=== PATIENT | female | born 1965 | race Caucasian/White ===

== ENCOUNTER 2020-01-08 13:29 | Outpatient (REF) | payer BC, MEDICARE, MEDICAID, SELFPAY ==
--- NOTE | 2020-01-08 | MR_ITS ---
MRI OF THE BRAIN WITH AND WITHOUT IV CONTRAST INDICATION: Multiple sclerosis. COMPARISON: None available. TECHNIQUE: Multiplanar multisequence MR imaging of the brain was obtained without and following the administration of 7.5 mL of Gadavist without complication. FINDINGS: There is no pathologic intracranial enhancement. There are T2 signal changes throughout the supratentorial white matter and central elizabeth which are nonspecific, could be seen in the setting of chronic microangiopathy, other vasculopathies, or alternative etiologies. The distribution is not suggestive of the sequela of demyelinating disease. There is no restricted diffusion within the central elizabeth to suggest central pontine myelinolysis. There is no hydrocephalus, extra-axial surface collection, or herniation. The major flow voids at the skull base are preserved. There is no acute infarct on diffusion-weighted imaging. There is no intracranial hemorrhage on the gradient recalled echo acquisition. The midline structures are normal. The cerebellar tonsils are normally positioned. The cerebellum and brainstem are normal. The craniocervical junction is normal. Osseous marrow signal intensity is homogenous. The visualized soft tissues are unremarkable. There is a retention cyst within the left maxillary sinus. The remaining paranasal sinuses and the mastoid air cells are clear. MR/MR head/brain wo/w con IMPRESSION: There are T2 signal changes throughout the supratentorial white matter and central elizabeth which are nonspecific, could be seen in the setting of chronic microangiopathy, other vasculopathies, or alternative etiologies. The distribution is not suggestive of the sequela of demyelinating disease. There is no restricted diffusion within the central elizabeth to suggest central pontine myelinolysis. No pathologic enhancement.
== END 2020-01-08 13:30 | disposition home or self-care (01) ==
LOC: HO.MRI 13:29
PROVIDERS: Visit Provider Psychiatry & Neurology Neurology
DX: G37.9 Demyelinating disease of central nervous system, unspecified (principal)
CPT/HCPCS: 70553; A9585

== ENCOUNTER 2020-09-29 14:15 | Outpatient (REF) | payer MEDICARE, MEDICAID, SELFPAY ==
--- NOTE | ~2020-09-29 | XR_ITS ---
EXAMINATION: XR HIP, LEFT CLINICAL INFORMATION: Acute left-sided pain. COMPARISON: None TECHNIQUE: Two views of the left hip. FINDINGS: Bones and soft tissues are normal. No fracture. Alignment is anatomic. Hip joint space is maintained. XR/XR hip LT min 2V IMPRESSION: Normal left hip.
== END 2020-09-29 14:16 | disposition home or self-care (01) ==
LOC: HO.XRAY 14:15
PROVIDERS: Visit Provider Psychiatry & Neurology Neurology
DX: M25.552 Pain in left hip (principal)
CPT/HCPCS: 73502

== ENCOUNTER 2021-04-13 12:01 | Outpatient (REF) | payer BC, MEDICARE, MEDICAID, SELFPAY ==
[2021-04-13 12:40] LABS: MANUAL DIFF FLAG NO
[2021-04-13 13:00] LABS: Basophils Percent Auto 0.6 % (0-2); Eosinophils Absolute Auto 0.2 X10*3/uL (0.0-0.4); Eosinophils Percent Auto 2.5 % (0-4); Hemoglobin 12.6 g/dl (12.0-16.0); Imm Gran Abs Auto 0.02 X10*3/uL (0.00-0.03); Imm Gran Pct Auto 0.3 % (0.0-0.4); Lymphocytes Absolute Auto 2.2 X10*3/uL (1.2-4.9); Lymphocytes Percent Auto 30.5 % (20-40); Mean Corpuscular HGB Conc 32.3 g/dl (31.0-35.0); Mean Corpuscular Hemoglobin 28.1 pg (27.0-33.0); Mean Corpuscular Volume 86.9 fL (80.0-98.0); Mean Platelet Volume 9.1 fL (9.4-12.3); Monocytes Absolute Auto 0.6 X10*3/uL (0.1-1.2); Monocytes Percent Auto 8.6 % (2-11); Neutrophils Absolute Auto 4.1 x10*3/uL (2.0-8.3); Neutrophils Percent Auto 57.5 % (45-73); Platelet Count 364 X10*3/uL (160-400); Red Blood Count 4.49 X10*6/uL (4.20-5.50); Red Cell Distribution Width 13.8 % (11.0-16.0); White Blood Count 7.1 X10*3/uL (4.8-10.8)
[2021-04-13 13:38] LABS: Erythrocyte Sedimentation Rate 17 MM/HR (0-20)
[2021-04-13 14:12] LABS: Anion Gap 9 (12-20); Carbon Dioxide 25 mmol/L (22-29); Chloride 111 mmol/L (96-108); Estimated Glomerular Filt Rate 56; Glucose Random 102 mg/dL (60-115); Iron 32 mcg/dL (30-160); Percent Iron Saturation 8 % (15-50); Potassium 5.2 mmol/L (3.3-5.1); Sodium 140 mmol/L (135-145); Total Iron Binding Capacity 384 mcg/dL (228-428); Unsaturated Iron Binding 352 ug/dL
[2021-04-13 14:16] LABS: Thyroid Stimulating Hormone 0.71 uIU/mL (0.32-4.0)
[2021-04-13 15:10] LABS: Blood Urea Nitrogen 12 mg/dL (9-16); Calcium 9.4 mg/dL (8.4-10.2)
== END 2021-04-13 12:02 | disposition home or self-care (01) ==
LOC: HO.LAB 12:01
PROVIDERS: Visit Provider Psychiatry & Neurology Neurology
DX: D64.9 Anemia, unspecified (principal); M79.7 Fibromyalgia
CPT/HCPCS: 36415; 80048; 83540; 84443; 85025; 85652

== ENCOUNTER 2024-11-14 11:46 | Outpatient (AMB) | payer OTHER, MEDICARE, SELFPAY ==
--- OUTSIDE RECORDS SUMMARY | 2024-11-14 10:15 | XMS_ITS | Encounter Summary ---
Author Organization [facility] Address [id number] [place] [id number] Care Team Providers Care Assistant Customer Service Manager Name Role Phone Eddie Odonnell MD Primary Care Provider [phone] Reason for Referral * Consultation (Routine) - Pending Review Specialty Diagnoses / Procedures Referred By Kelli redding Referred To Contact Urogynecology Diagnoses Multiple sclerosis (CMS/HCC V24, CMS/HCC V28) Mixed stress and urge urinary incontinence Eddie Odonnell MD [address] [address] Phone: tel: fax: Referral ID Status Reason Start Date Expiration Date Visits Requested Visits Authorized [id number] Pending Review Specialty Services Required 11/14/2024 11/14/2025 1 1 Reason for Visit * Reason Comments UTI Encounter Details Date Type Department Care Team (Late st Contact Info) Description 11/14/2024 10:15 AM EDT Office Visit Internal Medicine - [place] [address] [phone] Eddie Odonnell MD 175 [facility] [address] [place] [address] Mixed stress and urge urinary incontinence (Primary Dx); Multiple sclerosis (CMS/HCC V24, CMS/HCC V28) Social History Tobacco Use Types Packs/Day Years Used Date Smoking Tobacco: Every Day Cigarettes Passive Smoke Exposure: Current Smokeless Tobacco: Never Alcohol Use Standard Drinks/Week Comments No 0 (1 standard drink = 0.6 oz pur e alcohol) Housing Instability Answer Date Recorde d Are you worried that in the next 2 months you may not have stable housing? Unable to respond 06/09/2024 Food Access & Nutrition Answer Date Rec orded Do you have access to a vari ety of food including fruits and vegetables? Yes 06/09/2024 Access to Healthcare Answer Date Record ed Within the last 3 months, ho w many times did you visit the emergency department for your medical care? 0 06/09/2024 Health Literacy Answer Date Recorded How often do you need to hav e someone help you when you read instructions, pamphlets, or other written material from your doctor or pharmacy? Rarely 06/09/2024 Caregiver: How often do you need to have someone help you when you read instructions, pamphlets, or other written material from your doctor or pharmacy? Not on file 06/09/2024 Financial Risk Answer Date Recorded How hard is it for you to pa y for the very basics like food, housing, medical care, and air conditioning / heating? Somewhat hard 06/09/2024 Transportation Answer Date Recorded Has the lack of transportati on kept you from meetings, work, or from getting things needed for daily living? Yes 06/09/2024 Has the lack of transportati on kept you from medical appointments or from getting medications? Unable to respond 06/09/2024 Social Isolation Answer Date Recorded How often do you feel lonely or isolated from those around you? Sometimes 06/09/2024 Food Risk Answer Date Recorded Within the past 12 months we worried whether our food would run out before we got money to buy more. Sometimes true 025 Within the past 12 months th e food we bought just didn't last and we didn't have money to get more. Sometimes true 06/09/2024 Dependent Care Answer Date Recorded Do you need help finding or paying for care for your loved ones. For example, childcare center administrator or elderly care for an older adult? No 06/09/2024 Education Answer Date Recorded Do you think completing more education or training, like finishing a GED, going to college, or learning a trade, would be helpful for you? No 06/09/2024 Employment and Income Answer Date Recor ded During the last four weeks, have you been actively looking for work? No 06/09/2024 Living Situation Answer Date Recorded What is your living situation? 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 Not on f ile Not on file Not on file documented as of this encounter Last Filed Vital Signs Vital Sign Reading Time Taken Comments Blood Pressure 120/86 11/14/2024 10:17 AM EDT Pulse 86 11/14/2024 10:17 AM EDT Temperature 35.6 C (96 F) 11/14/2024 10:17 AM EDT Respiratory Rate - - Oxygen Saturation 98% 11/14/2024 10:17 AM EDT Inhaled Oxygen Concentration - - Weight 94.5 kg (208 lb 6.4 oz) 11/14/2024 10:17 AM EDT Height 157.5 cm (5' 2 ) 11/14/2024 10:17 AM EDT Body Mass Index 38.12 11/14/2024 10:17 AM EDT documented in this encounter Progress Notes * Linette Odonnell MA - 11/14/2024 10:15 AM EDTAddended by: LINETTE ODONNELL on: 11/14/2024 12:42 PM Modules accepted: Orders * Eddie Odonnell MD - 11/14/2024 10:15 AM EDT COMPLAINT is ongoing symptoms of frequent urination IDENTIFIER: Linnette Dean is a 59 y.o. old female. HPI: Frequent urination and urge incontinence. Urine dip shows only trace WBC, no nitrite, no RBC ,no protein was treated for E. coli UTI about 6 weeks ago. 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 Class 1 obesity 12/12/2023 Current smoker 12/12/2023 Prediabetes 12/12/2023 Complete fecal incontinence 12/12/2023 Migraine 12/12/2023 Hyperlipidemia 12/11/2023 Diverticulitis 12/11/2023 Depression 12/11/2023 Fibromyalgia 12/11/2023 Gastroesophageal reflux disease 09/21/2023 Ovarian cyst 04/20/2020 History of bowel resection 02/24/2020 Migraine without status migrainosus, not intractable 08/14/2019 Multiple sclerosis ([facility] V24, [facility] V28) 10/30/2018 PTSD (post-traumatic stress disorder) 10/30/2018 Chest pain 10/30/2018 Incontinence of feces 07/09/2015 Mixed stress and urge urinary incontinence 07/09/2015 Cystocele, midline 07/09/2015 PRIMITIVO (stress urinary incontinence, female) 07/09/2015 Past Surgical History: Procedure Laterality Date ANKLE COMPLETE LEFT 2023 BOWEL RESECTION 2012 PROCEDURE: HISTORICAL BOWEL RESECTION; COMMENT: diverticulitis complications COLONOSCOPY PROCEDURE: HISTORICAL COLONOSCOPY LAPAROSCOPY DIAGNOSTIC / BIOPSY / ASPIRATION / LYSIS 2012 PROCEDURE: PELVIS LAPAROSCOPY, DIAGNOSTIC; COMMENT: BSO NECK SURGERY 2011 PROCEDURE: HISTORICAL NECK SURGERY; COMMENT: x 3 OOPHORECTOMY OTHER SURGICAL HISTORY 1999 PROCEDURE: NJ DILATION & CURETTAGE DX&/THER NONOBSTETRIC OTHER SURGICAL HISTORY PROCEDURE: [place] CRNEC TREPHINE BONE FLAP 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 SOCIAL HISTORY: Social History Tobacco Use Smoking status: Every Day Current packs/day: 0.50 Types: Cigarettes Passive exposure: Current Smokeless tobacco: Never Substance Use Topics Alcohol use: No FAMILY HISTORY: Family History Problem Relation Name Age of Onset Other cancer Mother Brain Hypertension Father Glaucoma Father Heart attack Father Diabetes Father Dementia Father Depression Sister Hypertension Sister Diabetes Sister Glaucoma Sister Thyroid disease Sister Drug abuse Brother Hypertension Brother Breast cancer Maternal Grandfather Breast cancer Mother's Sister Breast cancer Other multiple mat.aunts MEDICATIONS DISCONTINUED/REORDERED: There are no discontinued medications. ACTIVE MEDICATIONS: Outpatient Medications Marked as Taking for the 11/14/24 encounter (Office Visit) with Eddie Odonnell MD Medication Sig Dispense Refill acetaminophen (TYLENOL) 325 mg tablet Take 2 tablets (650 mg total) by mouth every 6 (six) hours ifneeded for mild pain. for pain 80 tablet 0 acetaminophen (TYLENOL) 325 mg tablet Take 2 tablets (650 mg total) by mouth every 6 (six) hours ifneeded for moderate pain. for pain 80 tablet 0 albuterol HFA (PROAIR HFA ; PROVENTIL HFA ; VENTOLIN HFA) 90 mcg/actuation inhaler Inhale 2 puffs by mouth every 6 (six) hours if needed for wheezing or shortness of breath. 3 each 3 bisacodyL (DULCOLAX) 5 mg EC tablet Take 2 tablets by mouth right before beginning bowel prep. See instructions provided by the office 2 tablet 0 budesonide-formoteroL (Symbicort) 160-4.5 mcg/actuation inhaler Inhale 2 puffs by mouth 2 (two) times a day. Rinse mouth with water after use to reduce aftertaste and incidence of candidiasis. Do notswallow. 1 each 11 budesonide-formoteroL (SYMBICORT) 160-4.5 mcg/actuation inhaler Inhale 2 puffs by mouth 2 (two) times a day. Rinse mouth with water after use to reduce aftertaste and incidence of candidiasis. Do notswallow. 3 each 3 buPROPion XL (WELLBUTRIN XL) 150 mg 24 hr tablet TAKE ONE TABLET BY MOUTH EVERY DAY IN THE MORNING 90 tablet 1 buPROPion XL (WELLBUTRIN XL) 300 mg 24 hr tablet Take 1 tablet (300 mg total) by mouth 1 (one) timeeach day in the morning. maqnxhyhjj-oaayvmfqjpopz-uhfljjdn (FIORICET, ESGIC) 50-325-40 mg per tablet take one tablet by mouth every 6 hours as needed for 30 days chlorhexidine/glycerin/he-cell (LUBRICANTS TOP) Apply 1 Act topically. cloNIDine (CATAPRES) 0.1 mg tablet Take 1 tablet (0.1 mg total) by mouth 2 (two) times a day. diclofenac (VOLTAREN) 1 % topical gel Apply 4 g topically. DULoxetine (CYMBALTA) [address] capsule Take 1 capsule (60 mg total) by mouth. escitalopram (LEXAPRO) 20 mg tablet Take 1 tablet (20 mg total) by mouth 1 (one) time each day. ferrous sulfate 324 mg (65 mg elemental iron) EC tablet Take 1 tablet (324 mg total) by mouth 1 (one) time each day with breakfast. Do not crush, chew, or split. 90 tablet 1 fluticasone propionate (FLONASE) 50 mcg/actuation nasal spray Administer 2 sprays into affected nostril(s). hydrOXYzine HCL (ATARAX) 25 mg tablet TAKE ONE TABLET BY MOUTH DAILY AT BEDTIME 90 tablet 1 ibuprofen (ADVIL,MOTRIN) 800 mg tablet Take 1 tablet (800 mg total) by mouth. medical marijuana [employer] med medical marijuana, Refills 0, Maintenance, 11/14/21 10:54:00 EDT, Supply meloxicam (MOBIC) 15 mg tablet Take 1 tablet (15 mg total) by mouth 1 (one) time each day. 90 tablet 1 mirabegron (MYRBETRIQ) 25 mg 24 hr tablet Take 1 tablet (25 mg total) by mouth 1 (one) time each day. omeprazole (PriLOSEC) [address] capsule TAKE ONE CAPSULE BY MOUTH TWICE A DAY 180 capsule 1 polyethylene glycol (Golytely) 236-22.74-6.74 -5.86 gram solution Take 4L by mouth once for one dose. May substitue any PEG. Starting at 6PM the night before your procedure drink 1 8oz glasses at your own pace until you complete half of the gallon. Finish 2nd half of the gallon 5 hours before your procedure. 4000 mL 0 pramipexole (MIRAPEX) 0.25 mg tablet Take 1 tablet (0.25 mg total) by mouth 1 (one) time each day. pregabalin (LYRICA) 200 mg capsule Take 1 capsule (200 mg total) by mouth. QUEtiapine (SEROquel) 25 mg tablet TAKE 1 TABLET BY MOUTH EVERYDAY AT BEDTIME FOR 5 NIGHTS, THEN INCREASE TO 2 TABLETS BY MOUTH EVERYDAY AT BEDTIME rizatriptan (MAXALT) 10 mg tablet as needed. rosuvastatin (CRESTOR) 20 mg tablet TAKE ONE TABLET BY MOUTH EVERY DAY 90 tablet 1 semaglutide (Wegovy) 0.5 mg/0.5 mL injection pen Inject 0.5 mg under the skin every 7 (seven) days.2 mL 0 tiotropium (SPIRIVA RESPIMAT) 2.5 mcg/actuation inhalation spray Inhale 2 puffs by mouth 1 (one) time each day. 3 each 3 tiZANidine (ZANAFLEX) 4 mg tablet Take 1 tablet (4 mg total) by mouth. tiZANidine (ZANAFLEX) 4 mg tablet Take 1 tablet (4 mg total) by mouth 1 (one) time each day if needed for muscle spasms. 30 tablet 1 topiramate (TOPAMAX) 100 mg tablet Take 1 tablet (100 mg total) by mouth 2 (two) times a day. ALLERGIES: No Known Allergies PHYSICAL EXAM: Vitals: 11/14/24 1017 BP: 120/86 Pulse: 86 Temp: 35.6 ??C (96 ??F) SpO2: 98% APPEARANCE: Alert and in no acute distress EARS: External ears normal. Abdominal no tenderness or guarding present. LABS: Lab Results Component Value Date WBC 5.3 08/07/2024 HGB 12.2 08/07/2024 HCT 38.6 08/07/2024 MCV 85.6 08/07/2024 Lab Results Component Value Date NA 143 08/07/2024 K 4.7 08/07/2024 CO2 23 08/07/2024 CL 112 (H) 08/07/2024 BUN 18 08/07/2024 ALKPHOS 102 08/07/2024 Lab Results Component Value Date TSH 1.19 06/11/2024 Lab Results Component Value Date HGBA1C 6.3 12/04/2022 CHOL 165 06/11/2024 LDL 97 12/04/2022 HDL 48 06/11/2024 TRIG 209 (H) 06/11/2024 No components found for: URINELEUK , URINENITR , URINEPRO , URINEPH , URINEBLD , URINESG , URINEKET , URINEBILI , URINEGLUC IMAGING: IMPRESSION: 1. Mixed stress and urge urinary incontinence 2. Multiple sclerosis ([facility] V24, [facility] V28) PLAN: ALLERGIES: No Known Allergies PHYSICAL EXAM: Vitals: 11/14/24 1017 BP: 120/86 Pulse: 86 Temp: 35.6 ??C (96 ??F) SpO2: 98% APPEARANCE: Alert and in no acute distress EARS: External ears normal. HEART: RRR with normal S1 and S2, no murmurs LUNG: clear to auscultation LABS: Lab Results Component Value Date WBC 5.3 08/07/2024 HGB 12.2 08/07/2024 HCT 38.6 08/07/2024 MCV 85.6 08/07/2024 Lab Results Component Value Date NA 143 08/07/2024 K 4.7 08/07/2024 CO2 23 08/07/2024 CL 112 (H) 08/07/2024 BUN 18 08/07/2024 ALKPHOS 102 08/07/2024 Lab Results Component Value Date TSH 1.19 06/11/2024 Lab Results Component Value Date HGBA1C 6.3 12/04/2022 CHOL 165 06/11/2024 LDL 97 12/04/2022 HDL 48 06/11/2024 TRIG 209 (H) 06/11/2024 No components found for: URINELEUK , URINENITR , URINEPRO , URINEPH , URINEBLD , URINESG , URINEKET , URINEBILI , URINEGLUC IMAGING: IMPRESSION: 1. Mixed stress and urge urinary incontinence 2. Multiple sclerosis (CMS/HCC V24, CMS/HCC V28) PLAN: Symptoms are urinary incontinence suggestive of either due to MS or postmenopausal atrophic vaginitis. Referred to urogynecologist. U/A is negative for WBC and RBC documented in this encounter Plan of Treatment Upcoming Encounters Date Type Department Care Team (Late st Contact Info) Description 12/02/2024 1:30 PM EDT Appointment [facility] [address] [place] [phone] Junaid Young DO [address] [place] [phone] 12/08/2024 11:30 AM EDT Nutrition Internal Medicine - [place] 175 [facility] [address] [place] [phone] Giulia Muhammad, RD [address] [place] [address] 12/09/2024 8:00 AM EDT Appointment [facility] [address] [place] [phone] 12/11/2024 11:15 AM EDT Office Visit Pulmonolgy - [place] 175 [facility] [address] [place] [phone] Yuli Christopher MD 175 [facility] [address] [place] [address] 01/13/2025 3:15 PM EST Office Visit Bariatric Surgery - [place] 175 [facility] [address] [place] [phone] Mohit Colby MD [address] [place] [phone] 02/16/2025 1:15 PM EST Office Visit Internal Medicine - [place] 175 [facility] [address] [place] [phone] Eddie Odonnell MD [address] [address] Scheduled Referrals Name Type Priority Associated Diagnoses Order Schedule Ambulatory referral to Urogynecology Outpatient Referral Routine Multiple sclerosis (CMS/HCC V24, CMS/HCC V28) Mixed stress and urge urinary incontinence 1 Occurrences starting 11/14/2024 until 11/14/2025 documented as of this encounter Goals Goal Patient Goal Type Associated Problems Recent Progress Patient-Stated? Author PT LTGs General No Tank Chaudhari, PT Note: Pt will ambulate x6 minutes without back pain Pt will carry 10 lb box x100 ft without back pain Pt will increase lumbar AROM to WNL Pt will be independent with HEP documented as of this encounter Procedures Procedure Name Priority Date/Time Associated Diagnosis Comments POC URINE NON-AUTO W/O MICRO Routine 11/14/2024 12:42 PM EDT Mixed stress and urge urinary incontinence documented in this encounter Results * (ABNORMAL) POC Urine Non-Auto W/O Micro (11/14/2024 12:42 PM EDT) Glucose UA POC Negative Negative, Trace mg/dL Leukocytes UA POC Trace(A) Negative Nitrite UA POC Negative Negative Urobilinogen UA POC 0.2 E.U./dL 0.2 E.U./dL, 1.0 E.U./dL, 8 , Unable to interpret due to interfering substances mg/dL Protein UA POC Negative Negative mg/dL PH UA POC 6.5 Blood UA POC Negative Negative Specific [place] UA POC 1.015 Ketones UA POC Negative Negative Bilirubin UA POC Negative Negative Urine Urine specimen obtained by clean catch procedure / Unknown 11/14/2024 12:42 PM EDT Eddie Odonnell MD POINT OF CARE TEST ENTER/EDIT OR DERABLES Final Result documented in this encounter Visit Diagnoses Diagnosis Mixed stress and urge urinary incontinence- Primary Mixed incontinence urge and stress (male)(female) Multiple sclerosis ([facility] V24, [facility] V28) Multiple sclerosis documented in this encounter Additional Health Concerns Assessment Noted Time PHQ-9 Depression Total Score: 11 05/08/ 025 8:36 AM EST documented as of this encounter Care Teams Assistant Customer Service Manager Relationship Specialty Start Date End Date Eddie Odonnell MD [address] [place] [address] PCP - General 08/20/23 documented as of this encounter
--- NOTE | 2024-11-14 11:52 | A.OFFVIS_ITS ---
Intake Visit Reasons: follow up FM migraine Allergies No Known Allergies Allergy (Verified 11/14/24 12:01) Medication List - Last Reconciled 11/14/24 by Leyda Boggs CNP acetaminophen 650 mg PO Q6H PRN budesonide-formoterol 160-4.5 mcg/actuation (Symbicort) 2 puffs inhalation BID bupropion HCl XL 150 mg PO QAM cyiwhkbotu-qtegdepavakhr-nywo 50-325-40 mg 1 tab PO Q6H PRN clonidine HCl 0.2 mg PO BID duloxetine 120 mg PO DAILY escitalopram oxalate 20 mg PO DAILY hydroxyzine HCl 25 mg PO BEDTIME meloxicam 15 mg PO DAILY mirabegron ER (Myrbetriq) 25 mg PO DAILY omeprazole 20 mg PO BID oxcarbazepine 300 mg PO BID pramipexole 0.5 mg PO QPM pregabalin 225 mg PO BID quetiapine 200 mg PO BEDTIME rizatriptan 10 mg PO DAILY PRN rosuvastatin 20 mg PO DAILY semaglutide (weight loss) (Wegovy) mg subcut QWEEK topiramate 100 mg PO BEDTIME HPI Comments Details: Ongoing generalized body pains from FM with pains to neck, shoulders, arms, ba ck, and legs. Ran out of pregabalin about 3 days ago, worse without medication. She was last prescribed duloxetine 60mg along with 30mg (for total of 90mg/day) from this office in 07/2024. She reported taking duloxetine 60mg 2 capsules (for total of 120mg/day). Tried PT in spring 2024, but was having more pain and stopped. Has pain in neck that radiates down arms, intermittent numbness and tingling in arms and hands. Hands feel weaker and dropping objects. Having more urinary urgency and some incontinence. Had bladder sling a few years ago which helped with these symptoms, but now returning, has appointment with urogyn. Migraines have been okay. Still getting some RLS symptoms and feet dancing at times. Mood was more depressed. Low energy level, tired throughout the day. She was working with therapist and psychiatrist. Saw neurologist (Dr. Rodrig[place] in [place]) for headache and felt like face had been drooping for about 2 months, MRI ordered and scheduled for 04/2023 at [facility]. Few migraines. Rizatriptan as needed helps, sometimes needs to repeat dose. Sore all over with pain to mid back, legs, neck. Neck clicks when she turns her head sometimes. Legs restless and has urge to move or kick legs. She feels better if she gets up and walks around. Lot of stress and anxiety. Was without a therapist for about a month. She had CT abdomen in 03/2024 and was found to have kidney stone. Waiting for appointment with ENT as she feels like her voice has changed and mouth is dry. She has appointment with weight management in 06/2024. Had surgery for L foot/ankle in 11/2022. Younger sister passed in 01/2023 from massive IA. Does not get along with . She has had 3 cervical disc operations both anterior and posterior approach and has fusion with hardware, done at [facility] in [place]. Neck clicks and makes noises. Had bladder sling which was working well. Constantly aching. She has been seen in [place] for more than [address] 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 None of her records or imaging studies are available at this time for review. She says that her symptoms started more than 10 years ago with numbness and tingling in her hands and toes and multiple falls. The numbness and tingling continue, but comes and goes and moves around, some days worse than others and can last hours at a time. She also has constant pain all over the body. 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 She has never had any visual disturbance. No lateralized weakness. Also suffers from migraine headaches without aura associated with nausea, vomiting, photophobia and sonophobia. [facility] Medical History (Updated 11/14/24 @ 12:29 by Leyda Boggs CNP) Extrapyramidal movement disorder Cerebral microvascular disease Migraine Demyelinating disease Cervical disc disease Fibromyalgia Review of Systems Const Denies chills, Denies daytime sleepiness, Reports difficulty sleeping, Denies fatigue, Denies fever(s), Denies frequent falls, Reports headache(s), Denies increased appetite, Denies poor appetite, Reports snoring, Denies weakness, Denies weight gain and Denies weight loss Eyes Denies loss of vision ENT Denies vertigo, Denies dizziness, Reports headache(s) and Reports neck pain Card Denies chest pain at rest, Denies chest pain with activity, Denies syncope, Denies leg edema, Denies palpitations, Denies dyspnea and Denies dyspnea on exertion Resp Denies cough, Denies dyspnea, Denies dyspnea on exertion and Reports snoring GI Denies abdominal pain, Denies constipation, Denies heartburn, Denies diarrhea and Denies nausea Denies urinary frequency, Reports urinary incontinence and Reports urinary urgency Musc Reports abnormal gait (balance difficulty), Reports back pain, Reports myalgias, Reports arthralgias, Reports neck pain, Reports numbness and Reports tingling Neuro Reports abnormal gait (balance difficulty), Denies vertigo, Denies dizziness, Denies syncope, Denies frequent falls, Reports headache(s), Denies lack of coordination, Denies loss of vision, Reports memory loss, Reports numbness, Denies Other visual disturbances, Reports restless legs, Denies seizure-like activity, Reports tingling, Denies paresthesias, Denies tremor(s) and Denies weakness Psych Reports anxiety, Reports depression, Denies auditory hallucinations, Reports memory loss and Denies visual hallucinations Endo Denies fatigue and Denies palpitations Physical Exam Const Other: General Appearance:? normal, in no acute distress. Heart:? S1, S2 normal, no murmurs. Lungs:? clear anteriorly and posteriorly. Musculoskeletal:? normal. Extremities:? no edema. Psych:? alert, oriented, cognitive function intact, cooperative with exam. Neuro Other: Abnormal Neurological Findings:?None. Mental Status: alert and oriented X 3. Normal attention, orientation, memory, and affect. Cranial Nerves: Pupils are equal, round, and reactive to light. External ocular muscles are intact. Visual bermudez are full, no ptosis. Face is symmetrical, no facial weakness or droop. Facial sensations are normal. Tongue protrudes in midline. Palate elevates symmetrically. Shoulder shrugging is normal Motor Examination: Normal muscle tone, bulk and strength. No atrophy or fasciculations. No drift of the extended upper extremities. DTR 2+. Plantars are flexor. Sensory Exam: Normal light touch, temperature, pinprick, vibration, and joint- position sensations. Rhomberg sign is absent. Coordination: No ataxia. No titubation. Gait Exam: Within normal limits. Cerebellar Signs: Nyxbny-ly-mpyr is okay. Extrapyramidal System: No tremor, rigidity with normal facial expressions. No bradykinesia. No bradyphrenia. Normal arm swing and posture. No propulsion or retropulsion. Speech: Normal. Results Reviewed Results Reviewed: 01/08/20 MRI brain shows extensive white matter microvascular disease. Assessment & Plan Assessment & Plan (1) Fibromyalgia: Code(s): M79.7 - Fibromyalgia Category: Medical Plan: Continue pregabalin 225mg 1 capsule twice a day. Duloxetine was being used for the treatment of fibromyalgia, although it may also help with mood. (2) Migraine: Code(s): G43.909 - Migraine, unspecified, not intractable, without status migrainosus Category: Medical Qualifiers: Intractability: not intractable Migraine type: unspecified Status migrainosus presence: without status migrainosus Qualified Code(s): G43.909 - Migraine, unspecified, not intractable, without status migrainosus Plan: Continue topiramate 100mg 1 tablet at bedtime. Continue rizatriptan 10mg 1 tablet as needed for migraine. Continue hewogwmqof-QSYF-wbfd 50-325-40mg 1 tablet as needed q6h for headache #20 for 30 days. (3) Restless leg syndrome: Code(s): G25.81 - Restless legs syndrome Category: Medical Plan: Continue pramipexole 0.5mg 1 tablet in the evening. (4) Cervical radiculopathy: Code(s): M54.12 - Radiculopathy, cervical region Category: Medical Plan: NCV/EMG ordered. (5) Cervical disc disease: Code(s): M50.90 - Cervical disc disorder, unspecified, unspecified cervical region Category: Medical Plan: . (6) Cerebral microvascular disease: Code(s): I67.89 - Other cerebrovascular disease Category: Medical Plan: . (7) Depression: Code(s): F32.A - Depression, unspecified Category: Medical Qualifiers: Depression Type: unspecified Qualified Code(s): F32.A - Depression, unspecified Plan: She was working with therapist and psychiatrist, and was prescribed multiple psychiatric medications. Recommend follow up with psychiatrist for medication adjustment, continue working with therapist. Orders: Orders NE nerve conduction velocity Today M54.12 - Radiculopathy, cervical region NE electromyogram (EMG) Today M54.12 - Radiculopathy, cervical region Medications: Changed From pregabalin 225 mg PO BID To pregabalin 225 mg PO BID 60 caps 2RF 30 days Coding Level of Care Code Est Pt Level 4 (18515) Diagnoses Fibromyalgia M79.7 Migraine without status migrainosus, not intractable, unspecified migraine type G43.909 Intractability: not intractable Migraine type: unspecified Status migrainosus presence: without status migrainosus Restless leg syndrome G25.81 Cervical radiculopathy M54.12 Cervical disc disease M50.90 Cerebral microvascular disease I67.89 Depression, unspecified depression type F32.A Depression Type: unspecified
--- OUTSIDE RECORDS SUMMARY | 2024-11-14 14:14 | XMS_ITS | Clinical Summary ---
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 Name Role Phone Hector Sparrow Primary Care Provider Unav ailable Social History Tobacco Use Types Packs/Day Years Used Date Smoking Tobacco: Never Assessed Comments Unknown Sex and Gender Information Value Date Recorded Sex Assigned at Not on file Legal Sex Female 8:00 PM EDT Gender Identity Not on file Sexual Orientation Not on file Plan of Treatment Health Maintenance Due Date Last Done Comments Hepatitis C Screening 1965 Pap Smear 1981 DTaP/Tdap/Td (1 - Tdap) 1983 Hep B (1 of 3 - 19+ 3-dose series) 1984 Mammogram/Breast Imaging 2005 Pneumococcal 50+ years (1 of 1 - PCV) 2015 Zoster (Shingrix) (1 of 2) 2015 COVID-19 Vaccine (2023-2 5 season) 2024 Influenza (#1) 2024 HPV Vaccine (No Doses Required) Completed Hep A Aged Out No longer eligi ble based on patient's age to complete this topic Hib Aged Out No longer eligi ble based on patient's age to complete this topic Meningococcal ACWY Aged Out No longer eligible based on patient's age to complete this topic Care Teams Locomotive Driver Relationship Specialty Start Date End Date Hector Sparrow PCP - General 10/09/22
--- OUTSIDE RECORDS SUMMARY | 2024-11-14 14:14 | XMS_ITS | Clinical Summary ---
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 10/16/19 24 Active escitalopram (LEXAPRO) 20 mg tablet Take 1 tablet (20 mg total) by mouth 1 (one) time each day. 11/15/19 22 Active buPROPion XL (WELLBUTRIN XL) 300 mg 24 hr tablet Take 1 tablet (300 mg total) by mouth 1 (one) time each day in the morning. 09/21/19 24 Active mirabegron (MYRBETRIQ) 25 mg 24 hr tablet Take 1 tablet (25 mg total) by mouth 1 (one) time each day. 09/21/19 24 Active diclofenac (VOLTAREN) 1 % topical gel Apply 4 g topically. 08/28/19 24 Active fluticasone propionate (FLONASE) 50 mcg/actuation nasal spray Administer 2 sprays into affected nostril(s). 06/04/19 24 Active topiramate (TOPAMAX) 100 mg tablet Take 1 tablet (100 mg total) by mouth 2 (two) times a day. 03/16/19 24 Active ibuprofen (ADVIL,MOTRIN) 800 mg tablet Take 1 tablet (800 mg total) by mouth. 04/05/19 24 Active chlorhexidine/ glycerin/he-ce ll (LUBRICANTS TOP) Apply 1 Act topically. 11/01/19 23 Active rizatriptan (MAXALT) 10 mg tablet as needed. 06/03/19 22 Active pregabalin (LYRICA) 200 mg capsule Take 1 capsule (200 mg total) by mouth. 09/10/19 21 Active DULoxetine (CYMBALTA) [address] capsule Take 1 capsule (60 mg total) by mouth. 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 Rinse mouth with water after use to reduce aftertaste and incidence of candidiasis. Do not swallow. 1 each 05/08/19 25 026 Active hydrOXYzine HCL (ATARAX) 25 mg tablet TAKE ONE TABLET BY MOUTH DAILY AT BEDTIME 90 tablet 1 05/15/19 25 Active rosuvastatin (CRESTOR) 20 mg tablet TAKE ONE TABLET BY MOUTH EVERY DAY 90 tablet 1 06/08/19 25 Active butalbital-jayme taminophen-caf feine (FIORICET, ESGIC) 50-325-40 mg per tablet take one tablet by mouth every 6 hours as needed for 30 days 04/29/19 25 Active cloNIDine (CATAPRES) 0.1 mg tablet Take 1 tablet (0.1 mg total) by mouth 2 (two) times a day. 06/06/19 25 Active pramipexole (MIRAPEX) 0.25 mg tablet Take 1 tablet (0.25 mg total) by mouth 1 (one) time each day. 06/16/19 25 Active QUEtiapine (SEROquel) 25 mg tablet TAKE 1 TABLET BY MOUTH EVERYDAY AT BEDTIME FOR 5 NIGHTS, THEN INCREASE TO 2 TABLETS BY MOUTH EVERYDAY AT BEDTIME 06/09/19 25 Active tiZANidine (ZANAFLEX) 4 mg tablet Take 1 tablet (4 mg total) by mouth 1 (one) time each day if needed for muscle spasms. 30 tablet 1 07/12/19 25 Active buPROPion XL (WELLBUTRIN XL) 150 mg 24 hr tablet TAKE ONE TABLET BY MOUTH EVERY DAY IN THE MORNING 90 tablet 1 07/18/19 25 Active meloxicam (MOBIC) 15 mg tablet Take 1 tablet (15 mg total) by mouth 1 (one) time each day. 90 tablet 1 07/15/19 25 Active ferrous sulfate 324 mg (65 mg elemental iron) EC tablet Take 1 tablet (324 mg total) by mouth 1 (one) time each day with breakfast. Do not crush, chew, or split. 90 tablet 1 08/15/19 25 Active polyethylene glycol (Golytely) 236-22.74-6.74 -5.86 gram solution Take 4L by mouth once for one dose. May substitue any PEG. Starting at 6PM the night before your procedure drink 1 8oz glasses at your own pace until you complete half of the gallon. Finish 2nd half of the gallon 5 hours before your procedure. 4000 mL 08/26/19 25 Active bisacodyL (DULCOLAX) 5 mg EC tablet Take 2 tablets by mouth right before beginning bowel prep. See instructions provided by the office 2 tablet 08/26/19 25 Active budesonide-for moteroL (SYMBICORT) 160-4.5 mcg/actuation inhaler Inhale 2 puffs by mouth 2 (two) times a day. Rinse mouth with water after use to reduce aftertaste and incidence of candidiasis. Do not swallow. 3 each 09/05/19 25 026 Active tiotropium (SPIRIVA RESPIMAT) 2.5 mcg/actuation inhalation spray Inhale 2 puffs by mouth 1 (one) time each day. 3 each 09/05/19 25 026 Active albuterol HFA (PROAIR HFA ; PROVENTIL HFA ; VENTOLIN HFA) 90 mcg/actuation inhaler Inhale 2 puffs by mouth every 6 (six) hours if needed for wheezing or shortness of breath. 3 each 3 09/05/19 25 026 Active acetaminophen (TYLENOL) 325 mg tablet Take 2 tablets (650 mg total) by mouth every 6 (six) hours if needed for mild pain. for pain 80 tablet 09/24/19 25 Active acetaminophen (TYLENOL) 325 mg tablet Take 2 tablets (650 mg total) by mouth every 6 (six) hours if needed for moderate pain. for pain 80 tablet 09/24/19 25 Active omeprazole (PriLOSEC) [address] capsule TAKE ONE CAPSULE BY MOUTH TWICE A DAY 180 capsule 1 10/01/19 25 Active semaglutide (Wegovy) 0.5 mg/0.5 mL injection pen Inject 0.5 mg under the skin every 7 (seven) days. 2 mL 10/22/19 25 025 Active semaglutide (Wegovy) 0.25 mg/0.5 mL injection pen Inject 0.25 mg under the skin every 7 (seven) days for 28 days. 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 10/14/2012 History of bowel resection 02/24/2020 Overview (12/11/2023): 10/14/2012 Sigmoid colectomy. Migraine without status migrainosus, not intract able 08/14/2019 Multiple sclerosis ([facility] V24, [facility] V28) PTSD (post-traumatic stress disorder) 10/30/2018 Chest pain 10/30/2018 Overview (12/11/2023): Neg perfusion stress test with nl EF 06/2015 Incontinence of feces 07/09/2015 Mixed stress and urge urinary incontinence 07/08 Cystocele, midline 07/09/2015 PRIMITIVO (stress urinary incontinence, female) 2015 Resolved Problems Problem Noted Date Diagnosed Date Resolved Date Urinary tract infectious disease 07/09/2015 07/07/2024 Encounters Date Type Department Care Team Description 11/14/2024 10:15 AM EDT Office Visit Internal Medicine [address] [phone] Eddie Odonnell MD Mixed stress and urge urinary incontinence (Primary Dx); Multiple sclerosis ([facility] [place]24, [facility] V28) 11/11/2024 Telephone Internal Medicine [address] [phone] Eddie Odonnell MD 09/23/2024 10:15 AM EDT Telemedicine Internal Medicine [address] [phone] Eddie Odonnell MD Acute cystitis without hematuria (Primary Dx); Mixed stress and urge urinary incontinence; Multiple sclerosis ([facility] V24, [facility] V28) 09/22/[address] [facility] [address] [phone] Eddie Odonnell MD 09/08/2024 Telephone Gastroenterology [address] [phone] Junaid Young DO 09/04/2024 9:00 AM EDT Office Visit Pulmonolgy [address] [phone] Yuli Christopher MD Smoking (tobacco) complicating childbirth (Primary Dx); COPD with asthma ([facility] V24, [facility] V28); Apnea; Smoker; Marijuana smoker 09/03/2024 1:00 PM EDT Nutrition Internal Medicine [address] [phone] Giulia Muhammad RD Class 1 obesity (Primary Dx) 08/21/2024 Telephone [facility] Hematology Oncology [address] [place] [phone] Chasity Gonzalez MA 08/15/2024 9:45 AM EDT Office Visit Obstetrics & Gynecology - [address] [phone] Sandra Tong CNM Encounter for well woman exam with routine gynecological exam (Primary Dx); Screening breast examination; Screening for cervical cancer; Current tobacco use from Last 3 Months Immunizations Name Administration Dates Next Due Influenza Quadravalent, MDCK , 0.5ml, preservative free (Flucelvax) 6mo and older 11/15/2022,12/09/2021,01/01/2020 Influenza Quadrivalent, 0.5m l, preservative free (Fluarix; FluLaval; Fluzone) ages 6mo and older (Afluria) 3yo and older 02/04/2021 Pfizer SARS-CoV-2 COVID-19, mRNA, LNP-S, preservative free 07/15/2020 Tdap Tetanus diptheria acell ular pertussis (Boostrix; Adacel) 7yo and older 11/15/2022 Surgical History Surgery Date Site/Laterality Comments BOWEL RESECTION 2012 PROCEDURE: HISTORICAL BOWEL RESECTION; COMMENT: diverticulitis complications NECK SURGERY 2010, 2011 PROCEDURE: HISTORICAL NECK SURGERY; COMMENT: x 3 OTHER SURGICAL HISTORY 1999 PROCEDURE: [place] DILATION & CURETTAGE DX&/THER NONOBSTETRIC LAPAROSCOPY DIAGNOSTIC / BIOPSY / ASPIRATION / LYSIS 2012 PROCEDURE: PELVIS LAPAROSCOPY, DIAGNOSTIC; COMMENT: BSO OTHER SURGICAL HISTORY PROCEDURE: [place] CRNEC TREPHINE BONE FLAP 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 COLONOSCOPY PROCEDURE: HISTORICAL COLONOSCOPY OOPHORECTOMY ANKLE COMPLETE LEFT 03/05/2023 - 03/04/2024 Medical History Medical History Date Comments Fibromyalgia DX:Fibromyalgia Diverticulitis DX:Diverticuliti s Depression DX:Depression Hyperlipidemia DX:Hyperlipidemi a Ovarian cyst 04/20/2020 DX:Ovarian cyst; COMMENT: During partial colon resection, a bilateral salpingo-oophorectomy done. 10/14/2012 History of bowel resection 02/24/2020 DX:Hi story of bowel resection; COMMENT: 10/14/2012 Sigmoid colectomy. Mixed stress and urge urinar y incontinence 07/09/2015 DX:Mixed stress and urge uri nary incontinence Incontinence of feces 07/09/2015 DX:Inconti nence of feces Cystocele, midline 07/09/2015 DX:Cystocele, midline Family History Medical History Relation Name Comments Drug abuse Brother 1 Hypertension Brother 2 Dementia Father Diabetes Father Glaucoma Father Heart attack Father Hypertension Father Breast cancer Maternal Grandfather Other cancer Mother Brain Breast cancer Mother's Sister Breast cancer Other multiple mat.aunts Depression Sister 1 Diabetes Sister 2 Hypertension Sister 2 Glaucoma Sister 3 Thyroid disease Sister 4 Relation Name Status Comments Brother 1 Alive Brother 2 Brother 3 Alive Daughter Alive Father Alive Maternal Grandfather Maternal Grandmother Mother (Age 33) aneuryusm Mother's Sister Alive Other multiple mat.aunts Paternal Grandfather Paternal Grandmother Sister 1 Alive Sister 2 Sister 3 Sister 4 Social History Tobacco Use Types Packs/Day Years Used Date Smoking Tobacco: Every Day Cigarettes Passive Smoke Exposure: Current Smokeless Tobacco: Never Tobacco Cessation:Ready to Q uit: Not Asked; Counseling Given: Not Answered Alcohol Use Standard Drinks/Week Comments No 0 [...] Record ed Within the last 3 months, puma escobedo many times did you visit the emergency [...] care for your loved ones. For example, children's nursery assistant or elderly care for an older adult? 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 Para Term AB IAB SAB Ectopic Multiple Livin g Live Births 2 1 1 1 1 Date Outcome GA Total Labor Labor//3rd Weight Sex Type Anes PTL Elizabeth A1 A5 Name Clin 1992 Term F Vag-S pont Living Anitra Last Filed Vital Signs Vital Sign Reading Time Taken Comments Blood Pressure 120/86 11/14/2024 10:17 AM EDT Pulse 86 11/14/2024 10:17 AM EDT Temperature 35.6 C (96 F) 11/14/2024 10:17 AM EDT Respiratory Rate 18 04/23/2024 9:53 AM EST Oxygen Saturation 98% 11/14/2024 10:17 AM EDT Inhaled Oxygen Concentration - - Weight 94.5 kg (208 lb 6.4 oz) 11/14/2024 10:17 AM EDT Height 157.5 cm (5' 2 ) 11/14/2024 10:17 AM EDT Body Mass Index 38.12 11/14/2024 10:17 AM EDT Plan of Treatment Upcoming Encounters Date Type Department Care Team (Late st Contact Info) Description 12/02/2024 1:30 PM EDT Appointment [facility] Endoscopy [address] [place] [phone] Junaid Young DO [address] [place] [phone] 12/08/2024 11:30 AM EDT Nutrition Internal Medicine - [place] [address] [phone] Giulia Muhammad, GANESH [address] [place] [phone] 12/09/2024 8:00 AM EDT [facility]ointment [facility] [address] [phone] 12/11/2024 11:15 AM EDT Office Visit Pulmonolgy - [place] [address] [phone] Yuli Christopher MD [address] [phone] 01/13/2025 3:15 PM EST Office Visit Bariatric Surgery - [place] [address] [phone] Mohit Colby MD [address] [place] [phone] 02/16/2025 1:15 PM EST Office Visit Internal Medicine - [place] [address] [phone] Eddie Odonnell MD [address] [phone] Health Maintenance Due Date Last Done Comments Hepatitis B Vaccines (1 of 3 - 19+ 3-dose series) 1984 Pneumococcal Vaccine: 50+ Years (1 of 2 - PCV) 1984 Zoster Vaccines (1 of 2) 2015 Colorectal Cancer Screening: Stool Based Tests (FOBT/FIT) 02/11/2022 HIV Screening 02/11/2022 Hepatitis C Screening 02/11/2022 Medicare Annual Wellness Visit 02/11/2022 COVID-19 Vaccine ( season) 2024 04/13/2022, 08/11/2021, 02/04/2021, Additional history exists Influenza Vaccine (#1) 2024 , 12/09/2021, 02/04/2021, Additional history exists Social Influencers of Health Screening 06/09/2025 06/09/2024 Hypertension/CHF/CAD Annual BMP Blood Test 08/07/2025 08/07/2024, 06/11/2024, 03/26/2024, Additional history exists Breast Cancer Screening 06/10/2026 06/11/19 25, 05/15/2024, 01/31/2023, Additional history exists Cholesterol Screening (Lipid Panel) 06/11/2029 06/11/2024, 03/26/2024, 12/04/2022, Additional history exists Cervical Cancer Screening: HPV 08/15/2029 08/15/2024, 10/26/2020 DTaP,Tdap,and Td Vaccines (2 - Td or Tdap) 11/15/2032 11/15/2022 RSV Immunization Adult Patients (1 - 1-dose 75+ series) 2040 Colorectal Cancer Screening: Colonoscopy Discontinued 04/10/2023, 04/10/2023 Depression Screening Completed 06/09/2024, 12/22/19 23 HIB Vaccines Aged Out No longer eligi ble based on patient's age to complete this topic HPV Vaccines Aged Out No longer eligi ble based on patient's age to complete this topic Hepatitis A Vaccines Aged Out No long er eligible based on patient's age to complete this topic IPV Vaccines Aged Out No longer eligi ble based on patient's age to complete this topic MMR Vaccines Aged Out No longer eligi ble based on patient's age to complete this topic Meningococcal ACWY Vaccine Aged Out N o longer eligible based on patient's age to complete this topic Meningococcal B Vaccine Aged Out No l onger eligible based on patient's age to complete this topic RSV Immunization Patients Under 20 months Aged Out No longer eligible based on patient's age to complete this topic Varicella Vaccines Aged Out No longer eligible based on patient's age to complete this topic Goals Goal Patient Goal Type Associated Problems Recent Progress Patient-Stated? Author PT LTGs General No Tank Chaudhari, PT Note: Pt will ambulate x6 minutes without back pain Pt will carry 10 lb box x100 ft without back pain Pt will increase lumbar AROM to WNL Pt will be independent with HEP Procedures Procedure Name Priority Date/Time Associated Diagnosis Comments POC URINE NON-AUTO W/O MICRO Routine 11/14/2024 12:42 PM EDT Mixed stress and urge urinary incontinence WILDER URINE CULTURE TUBE Routine 09/23/19 1:23 PM EDT Infective urethritis URINALYSIS WITH REFLEX MICROSCOPIC AND CULTURE Routine 09/22/2024 1:23 PM EDT Infective urethritis URINALYSIS WITH REFLEX MICROSCOPIC AND CULTURE Routine 09/22/2024 1:23 PM EDT Infective urethritis CULTURE URINE Routine 09/22/2024 1:23 PM EDT Infective urethritis POLYSOMNOGRAPHY Routine 09/16/2024 4:25 PM EDT Apnea POLYSOMNOGRAPHY Routine 08/19/2024 2:24 PM EDT Apnea PAP SMEAR Routine 08/15/2024 10:39 AM EDT Encounter for well woman exam with routine gynecological exam Screening for cervical cancer HPV WITH REFLEX GENOTYPE Routine 08/15/2024 10:39 AM EDT Encounter for well woman exam with routine gynecological exam Screening for cervical cancer COMPREHENSIVE METABOLIC PANEL Routine 08/07/2024 1:53 PM EDT Anemia, unspecified type LIPID PANEL WITH REFLEX TO DIRECT LDL Routine 06/11/2024 9:25 AM EDT Hypercholesterolemia Primary hypertension Current mild episode of major depressive disorder, unspecified whether recurrent ([facility] V24) Adult general medical examination MG MAMMO DIAGNOSTIC ADDL VIEWS RIGHT Routine 06/10/2024 10:35 AM EDT Breast asymmetry HM COLONOSCOPY Routine 04/10/2023 HM DEPRESSION SCREENING Routine 12/21/2022 from Last 3 Months or Most Recently Relevant to Health Maintenance Results * (ABNORMAL) POC Urine Non-Auto W/O [...] 6.5 Blood UA POC Negative Negative Specific [place] UA POC 1.015 Ketones UA POC Negative Negative Bilirubin UA POC Negative Negative Urine Urine specimen obtained by clean catch procedure / Unknown 11/14/2024 12:42 PM EDT Eddie Odonnell MD POINT OF CARE TEST ENTER/EDIT OR DERABLES Final Result * (ABNORMAL) Urinalysis with reflex microscopic and culture (09/22/2024 1:23 PM EDT) Specific [place] Urine 09/22/2024 2:16 PM EDT [facility] Comment:Unable to interpret due to color interference. pH, Urine 09/22/2024 2:16 PM EDT [facility] Comment:Unable to interpret due to color interference. Leukocytes, Urine 09/22/2024 2:16 PM T [facility] Comment:Unable to interpret due to color interference. Nitrite, Urine 09/22/2024 2:16 PM [facility] Comment:Unable to interpret due to color interference. Protein, Urine 09/22/2024 2:16 PM [facility] Comment:Unable to interpret due to color interference. Glucose, Urine 09/22/2024 2:16 PM [facility] Comment:Unable to interpret due to color interference. Ketones, Urine 09/22/2024 2:16 PM [facility] Comment:Unable to interpret due to color interference. Urobilinogen, Urine 09/22/2024 2:16 PM [facility] Comment:Unable to interpret due to color interference. Bilirubin, Urine 09/22/2024 2:16 PM [facility] Comment:Unable to interpret due to color interference. Blood, Urine 09/22/2024 2:16 PM [facility] Comment:Unable to interpret due to color interference. RBC, Urine 121.8(H) 0 - 4 /HPF LAB URINALYSIS - AUTOMATED METHOD 09/22/2024 2:16 PM [facility] WBC, Urine 501.8(H) 0 - 4 /HPF LAB URINALYSIS - AUTOMATED METHOD 09/22/2024 2:16 PM [facility] Squamous Epithelial, Urine 4 0 - 60 /LPF LAB URINALYSIS - AUTOMATED METHOD 09/22/2024 2:16 PM [facility] Bacteria, Urine Negative Negative /HPF LAB URINALYSIS - AUTOMATED METHOD 09/22/2024 2:16 PM [facility] Hyaline Casts, Urine 0.0 0 - 3 /LPF LAB URINALYSIS - AUTOMATED METHOD 09/22/2024 2:16 PM [facility] Urine Urine specimen obtained by clean catch procedure / Unknown Non-blood Collection / Unknown 09/22/2024 1:23 PM EDT 09/22/2024 1:23 PM EDT us Eddie Odonnell MD LAB URINE ORDERABLES Final Resul t Performing Organization Address [facility]/ZIP Co de Phone Number [facility] [address] [place] [address], [place] [phone] * Wilder urine culture tube (09/22/2024 1:23 PM EDT) Extra Tube Hold for add-ons. 09/22/2024 3:01 PM EDT [facility] Comment:Auto resulted. Urine Urine specimen obtained by clean catch procedure / Unknown Non-blood Collection / Unknown 09/22/2024 1:23 PM EDT 09/22/2024 1:23 PM EDT us Eddie Odonnell MD LAB URINE ORDERABLES Final Resul t Performing Organization Address [facility] Co de Phone Number [facility] [address] [place] [address], [place] [phone] * (ABNORMAL) Culture urine (09/22/2024 1:23 PM EDT) Culture, Urine >=100,000 CFU/mL Escherichia coli(A) MARY 09/24/2024 8:34 AM EDT [facility] Comment: This is an edited result. Previous organism was Gram negative bacilli on 09/23/2024 at 0834 EDT. Urine Urine specimen obtained by clean catch procedure / Unknown Non-blood Collection / Unknown 09/22/2024 1:23 PM EDT 09/22/2024 2:16 PM EDT Narrative Organism Antibiotic Method Susceptibility Escherichia coli Amoxicillin/Clavulanate MARY 4 ug/ml: Susceptible Escherichia coli Ampicillin/Sulbactam MARY <=2 ug/ml: Susceptible Escherichia coli Piperacillin/Tazobactam MARY <=4 ug/ml: Susceptible Escherichia coli Cefazolin (Urine) MARY <=1 ug/ml: Susceptible Escherichia coli Cefoxitin MARY <=4 ug/ml: Susceptible Escherichia coli Ceftazidime MARY <=0.5 ug/ml: Susceptible Escherichia coli Ceftriaxone MARY <=0.25 ug/ml: Susceptible Escherichia coli Cefepime MARY <=0.12 ug/ml: Susceptible Escherichia coli Meropenem MARY <=0.25 ug/ml: Susceptible Escherichia coli Amikacin MARY 2 ug/ml: Susceptible Escherichia coli Gentamicin MARY <=1 ug/ml: Susceptible Escherichia coli Ciprofloxacin MARY <=0.06 ug/ml: Susceptible Escherichia coli Levofloxacin MARY <=0.12 ug/ml: Susceptible Escherichia coli Nitrofurantoin MARY <=16 ug/ml: Susceptible Escherichia coli Trimethoprim/Sulfamethoxazole MARY <=20 ug/ml: Susceptible Eddie Odonnell MD LAB MICROBIOLOGY - GENERAL ORDER MINDA Final Result Performing Organization Address City/[facility]/ZIP Co de Phone Number [facility] [address] [place] [address], [place] [phone] * Polysomnography (09/16/2024 4:25 PM EDT) Yuli Christopher MD [facility] ORDERABLES Final Re sult * Polysomnography (08/19/2024 2:24 PM EDT) Yuli Christopher MD [facility] CENTER ORDERABLES Final Re sult * HPV with reflex genotype (08/15/2024 10:39 AM EDT) HPV Negative Negative LAB MICROBIOLOGY METHOD 08/18/2024 12:50 PM EDT [facility] Brushing/Spatula Cervix uteri structure / Unknown 08/15/2024 10:39 AM EDT 08/18/2024 6:40 AM EDT Sandra Tong CNM LAB MOLECULAR DIAGNOSTICS ORD ERABLES Final Result [facility] [address] [place] [address], [place] [phone] * Pap smear (08/15/2024 10:39 AM EDT) Interpretation Negative for intraepithelial lesion or malignancy 08/18/2024 4:18 PM EDT [facility] General Categorization Negative 08/18/2024 4:18 PM EDT [facility] Specimen Adequacy Satisfactory for evaluation, endocervical/hallman sformation zone component present 08/18/2024 4:18 PM EDT [facility] Pap Methodology Liquid Based Pap Test 08/18/2024 4:18 PM EDT [facility] Disclaimer The Pap test is a screening test which carries an inherent false negative rate. These test results should be correlated with the patient's clinical findings and history. This Pap test was processed using an automated screening system. Technical cytopathology services provided by [facility], at [address] [place] [address] (CLIA # [id number]/Heidi Rapp MD, Motor Vehicle Examiner.) 08/18/2024 4:18 PM EDT [facility] Console Pap Interpretation Reported 08/18/2024 4:18 PM EDT [facility] Brushing/Spatula Cervix uteri structure / Unknown 08/15/2024 10:39 AM EDT 08/18/2024 6:40 AM EDT us Sandra Tong CNM LAB CYTOLOGY ORDERABLES Final Result [facility] [address] [place] [address], * (ABNORMAL) Comprehensive metabolic panel (08/07/2024 1:53 PM EDT) Sodium 143 133 - 145 mmol/L LAB CHEMISTRY METHOD 08/07/2024 5:17 PM [facility] Potassium 4.7 3.5 - 5.5 mmol/L LAB CHEMISTRY METHOD 08/07/2024 5:17 PM [facility] Chloride 112(H) 96 - 110 mmol/L LAB CHEMISTRY METHOD 08/07/2024 5:17 PM [facility] CO2 23 21 - 32 mmol/L LAB CHEMISTRY METHOD 08/07/2024 5:17 PM [facility] Anion Gap 8 3 - 11 LAB CHEMISTRY METHOD 08/07/2024 5:17 PM [facility] Glucose 94 70 - 100 mg/dL LAB CHEMISTRY METHOD 08/07/2024 5:17 PM [facility] BUN 18 5 - 25 mg/dL LAB CHEMISTRY METHOD 08/07/2024 5:17 PM [facility] Creatinine 1.10 0.50 - 1.10 mg/dL LAB CHEMISTRY METHOD 08/07/2024 5:17 PM [facility] eGFR 58(L) >=60 mL/min/1. 73m2 LAB CHEMISTRY METHOD 08/07/2024 5:17 PM [facility] Comment:Calculation based on the Chronic Kidney Disease Epidemiology Collaboration (CKD-EPI) equation refit without adjustment for race. BUN/Creatinine Ratio 16.4 LAB CHEMISTRY METHOD 08/07/2024 5:17 PM [facility] Calcium 9.1 8.5 - 10.5 mg/dL LAB CHEMISTRY METHOD 08/07/2024 5:17 PM [facility] AST (SGOT) 19 10 - 42 unit/L LAB CHEMISTRY METHOD 08/07/2024 5:17 PM [facility] ALT (SGPT) 26 10 - 60 unit/L LAB CHEMISTRY METHOD 08/07/2024 5:17 PM EDT [facility] Alkaline Phosphatase 102 42 - 121 unit/L LAB CHEMISTRY METHOD 08/07/2024 5:17 PM EDT [facility] Total Protein 6.8 6.0 - 8.0 g/dL LAB CHEMISTRY METHOD 08/07/2024 5:17 PM EDT [facility] Albumin 3.6 3.2 - 5.0 g/dL LAB CHEMISTRY METHOD 08/07/2024 5:17 PM EDT [facility] Total Bilirubin 0.2 0.0 - 1.4 mg/dL LAB CHEMISTRY METHOD 08/07/2024 5:17 PM T [facility] Blood Venous blood specimen / Unknown Venipuncture / Unknown 08/07/2024 1:53 PM EDT 08/07/2024 4:50 PM EDT us Sangeeta PERES LAB BLOOD ORDERABLES Final Re sult [facility] [address] [place] [address], * (ABNORMAL) Lipid panel with reflex to direct LDL (06/11/2024 9:25 AM EDT) Cholesterol 165 0 - 200 mg/dL LAB CHEMISTRY METHOD 06/11/2024 2:30 PM EDT [facility] Triglycerides 209(H) 0 - 150 mg/dL LAB CHEMISTRY METHOD 06/11/2024 2:30 PM EDT [facility] HDL 48 >=40 mg/dL LAB CHEMISTRY METHOD [facility] LDL Calculated 75 0 - 100 mg/dL LAB CHEMISTRY METHOD 06/11/2024 2:30 PM [facility] VLDL Cholesterol Hector 41.8 mg/dL LAB CHEMISTRY METHOD 06/11/2024 2:30 PM EDT [facility] Non HDL Chol. (LDL+VLDL) 117 <145 mg/dL LAB CHEMISTRY METHOD 06/11/2024 2:30 PM EDT [facility] Chol/HDL Ratio 3.4 0.0 - 4.4 LAB CHEMISTRY METHOD 06/11/2024 2:30 PM EDT [facility] Blood Venous blood specimen / Unknown Venipuncture / Unknown 06/11/2024 9:25 AM EDT 06/11/2024 9:25 AM EDT us Eddie Odonnell MD LAB BLOOD ORDERABLES Final Resul t [facility] [address] [place] [address], [place] [phone] * MG Mammo Diagnostic Addl Views Right (06/10/2024 10:35 AM EDT) Anatomical Region Laterality Modality Breast Right Mammography 06/10/2024 11:0 4 AM EDT Impressions 06/10/2024 11:07 AM EDT The suspected small mass becomes less prominent with spot compression. No residual targetable abnormality. Recommend diagnostic right mammography in 6 months including Tomosynthesis ASSESSMENT: BI-RADS 3: PROBABLY BENIGN RECOMMENDATION(S): 1: Follow-up diagnostic mammogram RIGHT in 6 months. [facility] [address] [place], [address] -------- FINAL REPORT -------- Dictated By: Vahe Goins Dictated Date: 06/10/2024 11:04 ET Assigned Physician: Vahe Goins Reviewed and Electronically Signed By: Vahe Goins Signed Date: 06/10/2024 11:07 ET Workstation ID: [id number] Transcribed By: Self Edit Transcribed Date: 06/10/2024 11:04 ET Narrative 06/10/2024 11:07 AM EDT EXAM: DIAGNOSTIC MAMMOGRAPHY, UNILATERAL RIGHT HISTORY: Abnormal screening mammogram. Incompletely characterized right breast mass. COMPARISON: Portions of right mammography 05/15/24 TECHNIQUE: Tomosynthesis of the right breast using spot compression in multiple projections. ADDITIONAL IMAGING: None Computer aided detection was not utilized. TISSUE DENSITY: There are scattered areas of fibroglandular density. (BI-RADS category B) FINDINGS: RIGHT BREAST: The 0.7 cm suspected mass 5 cm behind the right nipple becomes less prominent. Slight nodularity persists. No distortion. No suspicious calcifications. No new suspicious right breast finding Procedure Note Vahe Goins MD - 06/10/2024 EXAM: DIAGNOSTIC MAMMOGRAPHY, UNILATERAL RIGHT HISTORY: Abnormal screening mammogram. Incompletely characterized rightbreast mass. COMPARISON: Portions of right mammography 05/15/24 TECHNIQUE: Tomosynthesis of the right breast using spot compression inmultiple projections. ADDITIONAL IMAGING: None Computer aided detection was not utilized. TISSUE DENSITY: There are scattered areas of fibroglandular density.(BI-RADS category B) FINDINGS: RIGHT BREAST: The 0.7 cm suspected mass 5 cm behind the right nipple becomes lessprominent. Slight nodularity persists. No distortion. No suspiciouscalcifications. No new suspicious right breast finding IMPRESSION: The suspected small mass becomes less prominent with spot compression. No residual targetable abnormality. Recommend diagnostic right mammography in 6 months including Tomosynthesis ASSESSMENT: BI-RADS 3: PROBABLY BENIGN RECOMMENDATION(S): 1: Follow-up diagnostic mammogram RIGHT in 6 months. [facility] [address], [address] -------- FINAL REPORT -------- Dictated By: Vahe Goins Dictated Date: 06/10/2024 11:04 ET Assigned Physician: Vahe Goins Reviewed and Electronically Signed By: Vahe Goins Signed Date: 06/10/2024 11:07 ET Workstation ID: [id number] Transcribed By: Self Edit Transcribed Date: 06/10/2024 11:04 ET Eddie Odonnell MD IM BI PROCEDURES Final Result * Colonoscopy (04/10/2023) Colonoscopy no interpretation , abstracted Anatomical Region Laterality Modality Other Historical Provider HEALTH MAINTENANCE Final Result * Depression Screening (12/21/2022) Depression Screening abstracted Historical Provider HEALTH MAINTENANCE Final Result from Last 3 Months or Most Recently Relevant to Health Maintenance Insurance [place]ICA[place] - [place] [facility] [employer] MEDICARE Care Teams Dredge Boat Engineer Relationship Specialty Start Date End Date Eddie Odonnell MD [address] [place] [address] [address] [place] [address] PCP - General 08/20/23
--- OUTSIDE RECORDS SUMMARY | 2024-11-14 14:14 | XMS_ITS | Encounter Summary ---
Author Organization [facility] Address [address] [place] [address] Care Team Providers Care Game Warden Name Role Phone Unavailable Primary Care Provider Unavailabl e Encounter Details Date Type Department Care Team (Late st Contact Info) Description 02/15/2024 Telephone [facility] [address] [place] [phone] [place] Social History Tobacco Use Types Packs/Day Years Used Date Smoking Tobacco: Never Assessed Comments Unknown Sex and Gender Information Value Date Recorded Sex Assigned at Not on file Legal Sex Female 3:48 PM EDT Gender Identity Not on file Sexual Orientation Not on file documented as of this encounter Miscellaneous Notes * Telephone Encounter - [place] - 02/15/2024 3:44 PM EST Colon recall. Pending task reply, no prev records. OCS documented in this encounter Plan of Treatment Not on file documented as of this encounter Visit Diagnoses Not on filedocumented in this encounter
--- OUTSIDE RECORDS SUMMARY | 2024-11-14 14:14 | XMS_ITS | Clinical Summary ---
Author Organization [facility] Address [address] [place] [address] Care Team Providers Care Speech Language Pathologist Prn Name Role Phone Unavailable Primary Care Provider Unavailabl e Social History Tobacco Use Types Packs/Day Years Used Date Smoking Tobacco: Never Assessed Comments Unknown Sex and Gender Information Value Date Recorded Sex Assigned at Not on file Legal Sex Female 3:48 PM EDT Gender Identity Not on file Sexual Orientation Not on file Plan of Treatment Health Maintenance Due Date Last Done Comments Hepatitis C Virus Screening 1965 HIV Screening 1978 DTaP/Tdap/Td Vaccines (1 - Tdap) 1984 Hepatitis B Vaccines (1 of 3 - 19+ 3-dose series) 03/07 Pneumococcal Vaccines 50+ (1 of 1 - PCV) 2015 Zoster (Shingles) Vaccine (1 of 2) 2015 COVID-19 Vaccine ( - season) 2024
--- OUTSIDE RECORDS SUMMARY | 2024-11-14 14:14 | XMS_ITS | Clinical Summary ---
Author Organization [facility] Address [address] [place] [address] Care Team Providers Care Program Support Clerk Name Role Phone Sukhjinder Taylor MD Primary Care Provider Unava ilable Allergies No known active allergies Medications Medication Sig Dispensed Refills Start Date End Date Status progesterone (PROMETRIUM) capsule 200 mg Take 200 mg by mouth every night at bedtime. 0 Active omeprazole (PRILOSEC) 20 MG capsule Take 20 mg by mouth 2 (two) times a day. 0 Active rosuvastatin (CRESTOR) tablet 20 mg Take 20 mg by mouth daily. 0 Active duloxetine (CYMBALTA) DR capsule 60 mg Take 60 mg by mouth daily. 0 Active duloxetine (CYMBALTA) DR capsule 30 mg Take 30 mg by mouth daily. 0 Active pregabalin (LYRICA) capsule 100 mg Take 300 mg by mouth 2 (two) times a day. 0 Active metoprolol succinate (TOPROL-XL) 24 hr tablet 50 mg Take by mouth daily. 0 Active Active Problems Problem Noted Date Diagnosed Date PRIMITIVO (stress urinary incontinence, female) 2015 Fecal incontinence 07/09/2015 Cystocele, midline 07/09/2015 Mixed stress and urge urinary incontinence 07/08 Urinary tract infectious disease 07/09/2015 Other urinary problems 07/09/2015 Family History Medical History Relation Name Comments Diabetes Father Heart disease Father Cancer Mother Relation Name Status Comments Father Mother Social History Tobacco Use Types Packs/Day Years Used Date Smoking Tobacco: Former Cigarettes 0.5 Alcohol Use Standard Drinks/Week Comments Yes 0 (1 standard drink = 0.6 oz pure alcohol) Drinks wine 1-2 times per week. Drinks 2 cups of coffee daily, 1-2 cups of soda weekly, and 50-60 ounces of water daily Sex and Gender Information Value Date Recorded Sex Assigned at Not on file Gender Identity Not on file Sexual Orientation Not on file Job Start Date Occupation Industry Not on file Not on file Not on file Last Filed Vital Signs Vital Sign Reading Time Taken Comments Blood Pressure 125/91 06/16/2015 10:59 AM EDT Pulse - - Temperature 36.4 C (97.6 F) 06/16/2015 10:59 AM EDT Respiratory Rate - - Oxygen Saturation - - Inhaled Oxygen Concentration - - Weight 78.9 kg (174 lb) 06/16/2015 10:59 AM EDT Height - - Body Mass Index - - Plan of Treatment Health Maintenance Due Date Last Done Comments Hepatitis B Vaccines (1 of 3 - 3-dose series) 1965 Hepatitis C Screening 1965 COVID-19 Vaccine (#1) 1965 Depression Screening 1977 Preventative Health Evaluation 1983 DTap / Tdap / Td (1 - Tdap) 1984 Cervical Cancer Screening (Pap Smear) 1986 Colon Cancer Screening (Colonoscopy) 2010 Shingrix-Zoster Vaccine (1 o f 2) 2015 Breast Cancer Screening (Mammogram) 07/27/2019 07/26/2017, 07/06/2016, 06/03/2015 Influenza Vaccine (#1) 2024 Pneumococcal Vaccine Aged Out No long er eligible based on patient's age to complete this topic RSV Ped < 20 months Aged Out No longe r eligible based on patient's age to complete this topic Advance Directives For more information, please contact: [phone] Documents on File Type Date Recorded Patient Client Services Director Expl anation Advance Directive and Living Will 07/24/2017 10:18 AM Care Teams Program Support Clerk Relationship Specialty Start Date End Date Sukhjinder Taylor MD PCP - General Family Medicine 05/28/15
--- OUTSIDE RECORDS SUMMARY | 2024-11-14 14:14 | XMS_ITS | Encounter Summary ---
Author Organization [facility] Address [address] [place] [address] Care Team Providers Care Legal Recovery Specialist Name Role Phone Eddie Odonnell MD Primary Care Provider [phone] Reason for Visit * Reason Onset Date Comments Urinary Frequency 11/11/2024 Encounter Details Date Type Department Care Team ([facility] st Contact Info) Description 11/11/2024 Telephone Internal Medicine - [place] [address] [facility] [address] [place] [phone] Eddie Odonnell MD 175 [facility] [address] [place] [address] Social History Tobacco Use Types Packs/Day Years [...] care for your loved ones. 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 After a few days of taking them, she started uti s/s again. She stopped taking the cranberry and the next day the s/s were much better. Advised pt to not take the pills for the next few days to see if she continues to feel better. Scheduled a f/u appt in case the s/s returned. Pt will cancel the appt if she continues to feel better. Pt u nderstands and agrees with plan. * Jocelyn Vale RN - 11/11/2024 12:[address] Odonnell-pt again having symptoms of UTI as she did last month. Please advise * Camilla Quinn - 11/11/2024 12:04 PM EDT Patient states same symptoms as one month ago UTI - Urinary frequency documented in this encounter Plan of Treatment Upcoming Encounters Date Type Department Care Team (Late st Contact Info) Description 12/02/2024 1:30 PM EDT Appointment [facility]oscopy [address] [place] [phone] Junaid Young DO [address] [place] [phone] 12/08/2024 11:30 AM EDT Nutrition Internal Medicine - [place] 175 [facility] [address] [place] [phone] Giulia Muhammad, RD [address] [place] [phone] 12/09/2024 8:00 AM EDT Appointment [facility] [address] [place] [phone] 12/11/2024 11:15 AM EDT Office Visit Pulmonolgy - [place] [address] [phone] Yuli Christopher MD [address] [address] 01/13/2025 3:15 PM EST Office Visit Bariatric Surgery - [place] 175 [facility] [address] [place] [phone] Mohit Colby MD [address] [place] [phone] 02/16/2025 1:15 PM EST Office Visit Internal Medicine - [place] [address] [phone] Eddie Odonnell MD [address] [address] documented as of this encounter Goals Goal Patient Goal Type Associated Problems Recent Progress Patient-Stated? Author PT LTGs General No Tank Chaudhari, PT Note: Pt will ambulate x6 minutes without back pain Pt will carry 10 lb box x100 ft without back pain Pt will increase lumbar AROM to WNL Pt will be independent with HEP documented as of this encounter Visit Diagnoses Not on filedocumented in this encounter Additional Health Concerns Assessment Noted Time PHQ-9 Depression Total Score: 11 05/08/2 025 8:36 AM EST documented as of this encounter Care Teams Legal Recovery Specialist Relationship Specialty Start Date End Date Eddie Odonnell MD [address] [address] PCP - General 08/20/23 documented as of this encounter
--- OUTSIDE RECORDS SUMMARY | 2024-11-14 14:14 | XMS_ITS | Encounter Summary ---
Author Organization [facility] Address [address] [place] [address] Care Team Providers Care Joint Runner Name Role Phone Unavailable Primary Care Provider Unavailabl e Encounter Details Date Type Department Care Team (Late st Contact Info) Description 02/18/2024 Telephone [facility] [address] [place] [phone] [place] Social History Tobacco Use Types Packs/Day Years Used Date Smoking Tobacco: Never Assessed Comments Unknown Sex and Gender Information Value Date Recorded Sex Assigned at Not on file Legal Sex Female 3:48 PM EDT Gender Identity Not on file Sexual Orientation Not on file documented as of this encounter Miscellaneous Notes * Telephone Encounter - [place] - 02/18/2024 11:01 AM EST LVM Colon recall No information found by the practice regarding previous colonosocpy.,DH OCS documented in this encounter Plan of Treatment Not on file documented as of this encounter Visit Diagnoses Not on filedocumented in this encounter
--- OUTSIDE RECORDS SUMMARY | 2024-11-14 14:14 | XMS_ITS ---
Author Name [facility] Organization Unknown History of Medication Use Medication Directions Dispensed Refills Start Date End Date Stat us buPROPion XL (WELLBUTRIN XL) 150 mg 24 hr tablet TAKE ONE TABLET BY MOUTH EVERY MORNING WITH A 300MG TABLET 03/12/2024 active buPROPion XL (WELLBUTRIN XL) 300 mg 24 hr tablet Take 1 tablet (300 mg total) by mouth 1 (one) time each day in the morning. 09/21/2023 active meloxicam (MOBIC) 15 mg tablet Take 1 tablet (15 mg total) by mouth 1 (one) time each day. 09/21/2023 active mirabegron (MYRBETRIQ) 25 mg 24 hr tablet Take 1 tablet (25 mg total) by mouth 1 (one) time each day. 09/21/2023 active diclofenac (VOLTAREN) 1 % topical gel Apply 4 g topically. 08/28/2023 active fluticasone propion-salmeteroL (ADVAIR HFA) 230-21 mcg/actuation inhaler Inhale 2 puffs by mouth. 08/15/2023 active fluticasone propionate (FLONASE) 50 mcg/actuation nasal spray Administer 2 sprays into affected nostril(s). 06/04/2023 active escitalopram (LEXAPRO) 20 mg tablet Take 1 tablet (20 mg total) by mouth 1 (one) time each day. 11/14/2021 active medical marijuana ROD POINTER med medical marijuana, Refills 0, Maintenance, 11/14/21 10:54:00 EDT, Supply 11/14/2021 active DULoxetine (Cymbalta) [address] capsule Take 1 capsule (30 mg total) by mouth. 02/05/2014 active Problems Problem Status Onset Date Problem Type Date of Resolution Source Urinary tract infectious disease active 2015-07-09 ProblemAct [facility] Ovarian cyst active 2020-04-20 ProblemAct [facility] Gastroesophageal reflux disease active 2023-09-21 ProblemAct [facility] Hyperlipidemia active 2023-12-11 ProblemAct [facility] Fibromyalgia active 2023-12-11 ProblemAct [facility] Mixed stress and urge urinary incontinence active 2015-07-09 ProblemAct [facility] Multiple sclerosis active 2018-10-30 ProblemAct [facility] Diverticulitis active 2023-12-[address] [facility] History of bowel resection active 2020-02-24 ProblemAct [facility] Class 1 obesity active 2023-12-[address] [facility] Migraine active 2023-12-12 ProblemAct [facility] Chest pain active 2018-10-30 ProblemAct [facility] Current smoker active 2023-12-12 ProblemAct [facility] Abnormal brain MRI active EncounterDiagnosisAct [facility] Cystocele, midline active 2015-07-09 ProblemAct [facility] Asthma active 2023-12-12 ProblemAct [facility] Depression active 2023-12-11 ProblemAct [facility] Complete fecal incontinence active 2023-12-12 ProblemAct [facility] PTSD (post-traumatic stress disorder) active 2018-10-30 ProblemAct [facility] PRIMITIVO (stress urinary incontinence, female) active 2015-07-09 ProblemAct [facility] Prediabetes active 2023-12-12 ProblemAct [facility] 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[address] [facility] Other migraine without status migrainosus, not intractable active EncounterDiagnosisAct [facility] Immunizations Vaccine Date Source Lot Number Status Influenza Quadravalent, MDCK , 0.5ml, preservative free (Flucelvax) 6mo and older 11/15/2022 [facility] [id number] completed Tdap Tetanus diptheria acell ular pertussis (Boostrix; Adacel) 7yo and older 11/15/2022 [facility] [id number] completed Pfizer SARS-CoV-2 COVID-19, mRNA, LNP-S, preservative free 07/15/2020 [facility] completed Influenza Quadravalent, MDCK , 0.5ml, preservative free (Flucelvax) 6mo and older 01/01/2020 [facility] [id number] completed Encounters Encounter Type Encounter Reason Primary Diagnosis Location Date Ambulatory Multiple Sclerosis Other abnorma l findings on diagnostic imaging of central nervous system [facility] 04/23/2024 Ambulatory [facility] 02/21/2024 Care Team Organization Name Specialty Phone Email Start Date End Da te [facility] 02/25/2024 [facility] 02/21/2024
== END 2024-11-14 12:35 | disposition home or self-care (01) ==
LOC: HO.HSM 11:47
PROVIDERS: PCP Internal Medicine; Visit Provider Registered Nurse
DX: M79.7 Fibromyalgia (principal); G43.909 Migraine, unspecified, not intractable, without status migrainosus; G25.81 Restless legs syndrome; M54.12 Radiculopathy, cervical region; M50.90 Cervical disc disorder, unspecified, unspecified cervical region; I67.89 Other cerebrovascular disease; F32.A Depression, unspecified
CPT/HCPCS: 99214